=== PATIENT | female | born 1960 | race Caucasian/White ===

== ENCOUNTER → 2016-09-22 | Outpatient (CLI) | payer BC ==
--- NOTE | 2016-09-25 17:48 | Diagnostic Imaging Report ---
Bilateral screening mammogram. The current study was also evaluated with a Computer Aided Detection (CAD) system. INDICATION: Screening. No current complaints stated on the questionnaire. COMPARISON: 07/18/15 FINDINGS: The breasts are composed of scattered fibroglandular densities. Scattered benign-appearing calcifications are seen. Allowing for technique and positional differences, no suspicious change is seen. IMPRESSION: No significant change. ACR BI-RADS Category 2: Benign findings. Result letter will be mailed to the patient. Note: At least 10% of breast cancer is not imaged by mammography. Dictated by: Dictated on workstation # [id number]
== END ==
LOC: RAD 09:16
PROVIDERS: ATTEND Internal Medicine
DX: Z12.31 Encounter for screening mammogram for malignant neoplasm of breast (principal)
CPT/HCPCS: 77067

== ENCOUNTER → 2017-11-11 | Outpatient (CLI) | payer BC ==
--- NOTE | 2017-11-12 09:18 | Diagnostic Imaging Report ---
Indication: Routine screening. Comparison is made with prior mammogram from 09/22/2016 and 07/18/2015. 2-D and 3-D bilateral screening mammography was performed with CAD. Both breasts remain heterogeneously dense, limiting the sensitivity of mammography. The parenchymal pattern appears stable. No mass or malignant-appearing microcalcifications are seen. The axillae are unremarkable. Impression: BI-RADS category 1. No mammographic features suspicious for malignancy are identified. ACR BI-RADS Category 1: Negative. Result letter will be mailed to the patient. Note: At least 10% of breast cancer is not imaged by mammography. Dictated by: Dictated on workstation # [id number]
== END ==
LOC: RAD 15:31
PROVIDERS: ATTEND Internal Medicine
DX: Z12.31 Encounter for screening mammogram for malignant neoplasm of breast (principal)
CPT/HCPCS: 77067

== ENCOUNTER → 2019-01-24 | Outpatient (CLI) | payer BC ==
--- NOTE | 2019-01-24 21:10 | Diagnostic Imaging Report ---
INDICATION: Screening. The current study was also evaluated with a Computer Aided Detection (CAD) system. 3-D Tomographic imaging was also performed. Comparison made with prior examinations from 11/11/2017, 09/22/2016, and 07/18/2015. FINDINGS: There are scattered fibroglandular densities bilaterally. There are a few benign-type calcifications. There is no dominant mass, spiculated lesion, or suspicious calcification identified. The skin, nipples, and axillae are unremarkable. IMPRESSION: Benign. ACR BI-RADS Category 2: Benign findings. Result letter will be mailed to the patient. Note: At least 10% of breast cancer is not imaged by mammography. Dictated by: Dictated on workstation # [id number]
== END ==
LOC: RAD 07:37
PROVIDERS: ATTEND Internal Medicine
DX: Z12.31 Encounter for screening mammogram for malignant neoplasm of breast (principal)
CPT/HCPCS: 77067

== ENCOUNTER → 2021-07-31 | Outpatient (CLI) | payer BC ==
--- NOTE | 2021-08-01 09:22 | Diagnostic Imaging Report ---
INDICATION: Routine screening. COMPARISON: 01/24/2019 and 11/11/2017. TECHNIQUE: 2D and 3D bilateral screening mammography was performed with CAD. FINDINGS: Both breasts are heterogeneously dense, limiting the sensitivity of mammography. The parenchymal pattern is stable. No mass or malignant-appearing microcalcifications are seen. The axillae are unremarkable. IMPRESSION: No mammographic features suspicious for malignancy are identified. ACR BI-RADS Category 1: Negative. Result letter will be mailed to the patient. Note: At least 10% of breast cancer is not imaged by mammography. Dictated by: Dictated on workstation # [id number]
== END ==
LOC: RAD 15:15
PROVIDERS: ATTEND Internal Medicine
DX: Z12.31 Encounter for screening mammogram for malignant neoplasm of breast (principal)
CPT/HCPCS: 77063; 77067

== ENCOUNTER → 2022-11-03 | Outpatient (CLI) | payer BC ==
--- NOTE | 2022-11-04 09:30 | Diagnostic Imaging Report ---
Indication: Routine screening. Comparison is made with prior mammogram from 07/31/2021 and 01/24/2019. 2-D and 3-D bilateral screening mammography was performed with CAD. CAD is utilized. The current study was also evaluated with a Computer Aided Detection (CAD) system. Both breasts are heterogeneously dense, limiting the sensitivity of mammography. The parenchymal pattern is stable. No mass or malignant-appearing microcalcifications are seen. Axillae are unremarkable. IMPRESSION: BI-RADS Category 1 No mammographic features suspicious for malignancy are identified. ACR BI-RADS Category 1: Negative. Result letter will be mailed to the patient. Note: At least 10% of breast cancer is not imaged by mammography. Dictated by: Dictated on workstation # [id number]
== END ==
LOC: RAD 08:39
PROVIDERS: ATTEND Internal Medicine
DX: Z12.31 Encounter for screening mammogram for malignant neoplasm of breast (principal)
CPT/HCPCS: 77063; 77067